=== PATIENT | male | born 1960 | race Two or more races ===

== ENCOUNTER 2017-03-28 08:37 | Emergency (ER) | payer OTHER ==
[2017-03-28 08:45] VITALS: BP 117/77
[2017-03-28 13:02] LABS: Hematocrit 44 % (42-52); Hemoglobin 14.3 g/dl (14.0-18.0); Mean Corpuscular HGB Conc 33 g/dl (31-36); Mean Corpuscular Hemoglobin 29 pg (27-31); Mean Corpuscular Volume 89 fL (80-94); Mean Platelet Volume 8 um3 (7.4-10.4); Red Blood Count 4.89 10^6/ul (4.0-5.4); Red Cell Distribution Width 14 % (10.5-15); White Blood Count 5.4 10^3/ul (3.5-10.8)
--- NOTE | 2017-03-28 14:05 | UC ---
Giana Cuenca Alfonso, scribed for Kevin Lombardi MD on 03/28/17 at 0928 . HPI Febrile Illness - HPI Summary HPI Summary: This patient is a 57 year old male presenting to [facility] c/o febrile illness since two days ago. Pt reports last time he had these symptoms a provider diagnosed him with Lyme disease. He spends a lot of time outdoors and removed dog ticks off his legs recently. He rates the pain 5/10 in severity. Sx aggravated and alleviated by nothing. He reports body aches, fever, headache, neck pain, diaphoresis, and a rash. He denies photophobia, sore throat, rhinorrhea, cough, abd pain, vomiting, and diarrhea. - History of Current Complaint Chief Complaint: UCGeneralIllness Time Seen by Provider: 03/28/17 09:17 Hx Obtained From: Patient Onset/Duration: Started Days Ago - 2 days, Still Present Timing: Constant Initial Severity: Moderate Current Severity: Moderate Pain Intensity: 5 Pain Scale Used: 0-10 Numeric Aggravating Factors: Nothing Alleviating Factors: Nothing Associated Signs and Symptoms: Other: - Positive body aches, fever, headache, neck pain, diaphoresis, and a rash; negative photophobia, sore throat, rhinorrhea, cough, abd pain, vomiting, and diarrhea. Related History: Recent Tick Bite - Allergy/Home Medications Allergies/Adverse Reactions: Allergies Allergy/AdvReac Type Severity Reaction Status Date / Time No Known Allergies Allergy Verified 12/20/16 09:59 PMH/Surg Hx/FS Hx/Imm Hx Endocrine/Hematology History: Denies: Hx Diabetes Cardiovascular History: Denies: Hx Hypertension, Hx Pacemaker/ICD History: Denies: Hx Renal Disease Musculoskeletal History: Denies: Hx Rheumatoid Arthritis, Hx Osteoporosis Sensory History: Denies: Hx Hearing Aid Psychiatric History: Denies: Hx Panic Disorder - Surgical History Surgery Procedure, Year, and Place: RIGHT KNEE SCOPING FOR TORN LIGAMENT 2002 Infectious Disease History: No Infectious Disease History: Denies: Hx Clostridium Difficile, Hx Hepatitis, Hx Human Immunodeficiency Virus (HIV), Hx of Known/Suspected MRSA, Hx Shingles, Hx Tuberculosis, Hx Known/ Suspected VRE, Hx Known/Suspected VRSA, History Other Infectious Disease, Traveled Outside the [place] in Last 30 Days - Family History Known Family History: Positive: Cardiac Disease - AFib, Other - Cancer - Social History Alcohol Use: None Substance Use Type: Reports: None Smoking Status (MU): Never Smoked Tobacco Have You Smoked in the Last Year: No Review of Systems Constitutional: Fever, Other - Positive diaphoresis Skin: Rash Eyes: Other - negative photophobia ENT: Other - negative sore throat Respiratory: Other - Negative rhinorrhea, and cough Gastrointestinal: Other - Negative abd pain, vomiting, and diarrhea Musculoskeletal: Arthralgia - Body aches, neck pain Neurological: Headache All Other Systems Reviewed And Are Negative: Yes Physical Exam Triage Information Reviewed: Yes Vital Signs: Initial Vital Signs Temp 98.5 F 03/28/17 08:42 Pulse 74 03/28/17 08:42 Resp 17 03/28/17 08:42 BP 117/77 03/28/17 08:42 Pulse Ox 100 03/28/17 08:42 Vital Signs Reviewed: Yes - Additional Comments The patient is well-nourished in no acute distress and in no acute pain. The skin has an abdominal rash 4 cm x 4 cm circular with a necrotic center. Mostly erythematous not vascular. HEENT: The head is normocephalic and atraumatic. The pupils are equal and reactive. Neck is supple with full range of motion and non-tender. Respiratory: Chest is non-tender. Lungs are clear to auscultation and breath sounds are symmetrical and equal. Cardiovascular: Heart is regular rate and rhythm. Abdomen: The abdomen is soft. Musculoskeletal: There is no back pain noted. Neurological: Patient is alert and oriented to person, place and time. Psychiatric: The patient has an appropriate affect and does not exhibit any anxiety or depression. Course/Dx - Course Course Of Treatment: A 57-year-old M presents to [facility] with a CC of febrile illness since two days ago. He reports body aches, fever, headache, neck pain, diaphoresis, and a rash. He denies photophobia, sore throat, rhinorrhea, cough, abd pain, vomiting, and diarrhea. Pt will be discharge with Doxycycline and follow up with PCP in one week. Pt is agreeable with this plan. - Febrile Illness Differential Diagnoses: Cellulitis, Other: - lyme's disease - Diagnoses Clinic Provider Diagnoses: lyme's disease Discharge - Discharge Plan Condition: Stable Disposition: HOME Prescriptions: DOXYcycline CAP(*) [DOXYcycline 100MG CAP(*)] 100 mg PO BID #42 cap Patient Education Materials: Lyme Disease (ED) Referrals: Andrew Carey MD [Primary Care Provider] - 1 Week The documentation as recorded by the Giana mendoza Alfonso accurately reflects the service I personally performed and the decisions made by me, Kevin Lombardi MD.
[2017-03-28 14:17] LABS: Erythrocyte Sed Rate 12 mm/Hr (0-20)
--- NOTE | 2017-03-29 16:48 | UC ---
Progress - Progress Note Progress Note: PLS NOTIFY PT - LYME SEROLOGY NEGATIVE. CBC GROSSLY UNREMARKABLE. CRP ELEVATED - GENERALIZED MARKER OF INFLAMMATION. CONTINUE CURRENT MGMT AND KEEP F/U WITH PCP ADVISED. - STUART LECHUGA MD
== END 2017-03-28 09:37 | disposition home or self-care (01) ==
LOC: UCEAST 08:37
DX: R50.9 Fever, unspecified (principal); R79.82 Elevated C-reactive protein (CRP)
CPT/HCPCS: 36415; 85025; 85652; 86140; 86618; 99212; G0463

== ENCOUNTER 2017-07-08 12:21 | Emergency (ER) | payer OTHER ==
[2017-07-08 12:38] VITALS: BP 150/85
--- NOTE | 2017-07-08 13:08 | UC ---
Skin Complaint HPI - HPI Summary HPI Summary: Pulled tick off of R hip 2 days ago, didn't seem engorged. Pt gets frequent tick bites, has had lyme 3 times (most recently in March of this year). Now there is a large red area around the bite, not terribly tender or itchy; pt has no fever, CORREIA, or new joint aches. - History of Current Complaint Chief Complaint: UCSkin Time Seen by Provider: 07/08/17 12:44 Stated Complaint: TICK Hx Obtained From: Patient Onset/Duration: Gradual Onset, Lasting Days Timing: Constant Onset Severity: Mild Current Severity: Mild Aggravating Factor(s): Nothing Alleviating Factor(s): Nothing Associated Signs & Symptoms: Positive: Rash Related History: Insect Bite/Sting - Allergy/Home Medications Allergies/Adverse Reactions: Allergies Allergy/AdvReac Type Severity Reaction Status Date / Time No Known Allergies Allergy Verified 12/20/16 09:59 Home Medications: Home Medications Aspirin [Aspirin 81 MG TAB] 81 mg PO 07/08/17 [History] Review of Systems Constitutional: Negative Skin: Rash, Other - tick bite Eyes: Negative ENT: Negative Respiratory: Negative Cardiovascular: Negative Gastrointestinal: Negative Genitourinary: Negative Motor: Negative Neurovascular: Negative Musculoskeletal: Negative Neurological: Negative Psychological: Negative Is Patient Immunocompromised?: No All Other Systems Reviewed And Are Negative: Yes PMH/Surg Hx/FS Hx/Imm Hx Previously Healthy: Yes - Surgical History Surgical History: Yes Surgery Procedure, Year, and Place: RIGHT KNEE SCOPING FOR TORN LIGAMENT 2001 - Family History Known Family History: Positive: Cardiac Disease - AFib, Other - Cancer - Social History Occupation: Employed Full-time Lives: With Family Alcohol Use: Rare Substance Use Type: None Smoking Status (MU): Never Smoked Tobacco Have You Smoked in the Last Year: No Physical Exam Triage Information Reviewed: Yes Appearance: Well-Appearing, No Pain Distress, Well-Nourished Vital Signs: Initial Vital Signs Temp 96.4 F 07/08/17 12:35 Pulse 66 07/08/17 12:35 Resp 18 07/08/17 12:35 BP 150/85 07/08/17 12:35 Pulse Ox 100 07/08/17 12:35 Vital Signs Reviewed: Yes Eye Exam: Normal Eyes: Positive: Conjunctiva Clear ENT Exam: Normal ENT: Positive: Normal ENT inspection, Hearing grossly normal, Pharynx normal, TMs normal Dental Exam: Normal Neck exam: Normal Respiratory Exam: Normal Respiratory: Positive: Chest non-tender, Lungs clear, Normal breath sounds, No respiratory distress, No accessory muscle use Cardiovascular Exam: Normal Cardiovascular: Positive: RRR, No Murmur Musculoskeletal Exam: Normal Neurological Exam: Normal Neurological: Positive: Alert Psychological Exam: Normal Skin Exam: Other - 9cm x 3cm irreg erythema around 1cm ecchymotic center on R hip. Course/Dx - Diagnoses Provider Diagnoses: lyme disease. elevated blood pressure Discharge - Discharge Plan Condition: Stable Disposition: HOME Prescriptions: DOXYcycline CAP(*) [DOXYcycline 100MG CAP(*)] 100 mg PO BID #28 cap Patient Education Materials: Lyme Disease (ED) Referrals: Andrew Carey MD [Primary Care Provider] - Additional Instructions: Though it is not as clear-cut as it was this summer, the large red area you have at your tick bite is suspicious for lyme. Please take the 2 weeks of antibiotics, and follow up with your primary care office if you have any new or worrisome symptoms, especially fever, joint aches, or unusual headache.
== END 2017-07-08 13:04 | disposition home or self-care (01) ==
LOC: UCEAST 12:21
DX: A69.20 Lyme disease, unspecified (principal); R03.0 Elevated blood-pressure reading, without diagnosis of hypertension
CPT/HCPCS: 99212; G0463

== ENCOUNTER 2017-12-16 05:56 | Day surgery (SDC) | payer OTHER ==
[2017-12-16] MEDS ORDERED: Buffered Lidocaine 0.9% SYRIN* 5 ML/SYR SYRINGE INTRADERM ONE (06:00)
[2017-12-16] MEDS ORDERED: Sodium Citrate/Citric Acid* 15 ML UDC PO ONE (06:00)
[2017-12-16] MEDS ORDERED: Sodium Citrate/Citric Acid* 15 ML UDC ONE (06:03)
[2017-12-16] MEDS ORDERED: Buffered Lidocaine 0.9% SYRIN* 5 ML/SYR SYRINGE ONE (06:03)
[2017-12-16] MEDS ORDERED: ceFAZolin 2 GM PREMIX (*) 2 GM/50 ML BAG IVPB ONE (06:03)
[2017-12-16] MEDS ORDERED: Bupivacaine 0.25% SDV* 30 ML ONE (07:23)
[2017-12-16] MEDS ORDERED: fentaNYL* 50 MCG/ML 2 ML VIAL (100 MCG VIAL) ONE (07:33)
[2017-12-16] MEDS ORDERED: Lidocaine 2% PF * 5 ML VIAL ONE (07:35)
[2017-12-16] MEDS ORDERED: Propofol* 10 MG/ML 20 ML BTL IV PUSH ONE (07:35)
[2017-12-16] MEDS ORDERED: Ondansetron INJ* 2 MG/ML VIAL IV PRN (08:05)
[2017-12-16] MEDS ORDERED: fentaNYL* 50 MCG/ML 2 ML VIAL (100 MCG VIAL) IV PRN (08:05)
[2017-12-16] MEDS ORDERED: Naloxone* 0.4 MG/ML 1 ML VIAL IV PRN (08:05)
[2017-12-16] MEDS ORDERED: Ketorolac INJ* 30 MG/ML 1 ML VIAL ONE (09:39)
[2017-12-16 11:02] VITALS: BP 114/88
[2017-12-16] MEDS ORDERED: traMADol TAB* 50 MG PO ONE (12:00)
--- NOTE | 2017-12-20 13:54 | OP ---
DATE OF OPERATION: 12/16/17 - [facility] DATE OF : 62 SURGEON: Mark Barrett MD. FRIED CAKE MAKER: CARLO Yeboah. An marketing support assistant was needed for the entirety of procedure to aid in position of the arm and retraction. ANESTHESIOLOGIST: Dr. Fairbanks. ANESTHESIA: General. 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 OPERATIVE PROCEDURE: Left thumb metacarpophalangeal joint radial collateral ligament reconstruction with split flexor iron radialis tendon graft. INDICATIONS: Ben had a tear in the radial collateral ligament that healed and the joint was frankly unstable. He was starting to get quite a bit of pain in the joint. He did not have a lot of signs for arthritis on the x-rays. We talked about reconstructing the ligament to get the joint stable. He wanted to proceed. He understands that if it was found to be a painful arthritic joint, he would require fusion. ESTIMATED BLOOD LOSS: 2 mL. COMPLICATIONS: None. FINDINGS: As expected. DESCRIPTION OF PROCEDURE: Ben was seen in the preoperative holding area. The correct side, site, and procedure were identified. We came back to the operating room where the arm was prepped and draped in the usual fashion. A time-out was performed. I exsanguinated the arm with the Esmarch and the tourniquet was inflated to 250 mmHg. I then made a Lazy-S incision over the radial side of the MCP joint. Dissection was carried down and the traversing radial sensory nerve was identified and retracted and protected throughout the case. I then split the abductor aponeurosis and this took me down onto the ligament, which was clearly degenerative and attenuated. All of this degenerative and attenuated tissue was excised. This took me down to the joint line. The radial aspect of the proximal phalanx and the collateral recess of the metacarpal head were prepared. I then took a 2.8-mm drill bit and placed one drill hole at the 1 o' clock position on the base of the proximal phalanx. I then made a separate drill hole at the 5 o'clock position. The two bone tunnels were connected under the traversing cortical bridge. I then took a 4.0 mm drill bit and made a drill hole about half way through the metacarpal head. This was centered in the collateral ligament fossa. I then came to the distal forearm. I made a 1-cm transverse incision over the FCR tendon. The sheath was opened. The tendon was delivered up into the wound. I split the tendon and then took about 20% of the tendon and placed a 25 -gauge wire through the split and then came proximal about 7 cm. I made a second 1-cm transverse incision. I opened up the sheath. I released the sheath between the 2 incisions. The 25-gauge wire was then pulled up into the more proximal incision and the slip of the FCR tendon was then amputated off proximally and distally to give me my tendon graft. These wounds were then irrigated and closed with 1 nylon suture each. I then sewed an 0 FiberWire suture into one end of my tendon graft. I passed the sutures with an 0 Prolene suture through the bone tunnel in the base of the proximal phalanx. The tendon graft was then delivered through the bony bridge. It was a very tight fit, but I got it through. I then used a Neptali needle to bring one tail of the FiberWire out the ulnar side of the metacarpal head distally and the other tail more proximally. I pulled one tail of the graft into the metacarpal head. I then measured my graft and cut it to size. I placed another 0 FiberWire suture through the other tail of the graft. The Neptali needles were then used to pass one suture tail proximally and distally through the metacarpal head. The second tail of the suture was pulled into the bone tunnel. I had made a 1.5 cm incision over the ulnar side of the MCP joint and dissection was carried down to the bone, retracting the proximal aspect of the extensor dodge. The suture tails were retrieved. Tension was set and they were tied up over a bony bridge. They were tied off with the MCP joint into ever so slight radial deviation and after they were tied off, there was excellent stability at both 0 and 30 degrees of flexion. The suture tails were then snipped. I did go ahead and take an Ethibond suture and tied together the two limbs of the reconstruction. The abductor aponeurosis was closed with 4-0 Ethibond suture. All the skin incisions were closed with 4-0 nylon. The operative areas were infiltrated with 0.25% plain Marcaine. The wounds were then dressed with Xeroform, 4 x 4's, sterile Webril, and a thumb spica splint out to the tip of the thumb was placed. Tourniquet was deflated. He was woken up and taken to the recovery room in stable condition. [id number][place] [place] [id number] FRANKIE
== END 2017-12-16 11:36 | disposition home or self-care (01) ==
LOC: OR 05:56
PROVIDERS: ATTEND Orthopaedic Surgery Hand Surgery
DX: M25.342 Other instability, left hand (principal); S63.642D Sprain of metacarpophalangeal joint of left thumb, subsequent encounter; X58.XXXD Exposure to other specified factors, subsequent encounter; Y92.9 Unspecified place or not applicable
CPT/HCPCS: A9270-GY; J0690; J1885; J2704; J3010